=== PATIENT | male | born 1995 | race Caucasian/White ===

== ENCOUNTER 2017-11-13 21:14 | Emergency (ER) | payer OTHER ==
--- NOTE | 2017-11-13 22:20 | ER Document Report ---
ED Medical Screen (RME) - General Chief Complaint: Palpitations Stated Complaint: PALPITATIONS Time Seen by Provider: 11/13/17 22:10 Notes: 21-year-old male, chief complaint of 1 week of intermittent symptoms where he will feel like his heart is racing, he will break out into a sweat, he states he has had muscle spasms, and he states that he has felt tightness in his chest. He states earlier today he broke out into a sweat and he felt like he was having muscle spasms and his heart rate was elevated as well. He states symptoms have largely resolved although he still feels a discomfort across his chest. He chews tobacco, denies smoking, recreational drugs, denies any supplements or daily medications. TRAVEL OUTSIDE OF THE [place] IN LAST 30 DAYS: No - Related Data Allergies/Adverse Reactions: Penicillins Allergy (Verified 11/13/17 21:17) Past Medical History - Social History Chew tobacco use (# tins/day): Yes Frequency of alcohol use: Occasional Drug Abuse: None Renal/ Medical History: Denies: Hx Peritoneal Dialysis Physical Exam - Vital signs Vitals: Temp Pulse Resp BP Pulse Ox 97.9 F 73 18 155/82 H 100 11/13/17 22:07 11/13/17 22:07 11/13/17 22:07 11/13/17 22:07 11/13/17 22:07 - Respiratory Respiratory status: No respiratory distress Breath sounds: Normal, Other - a few coarse breath sounds. No: Decreased air movement - Cardiovascular Rhythm: Regular. No: Tachycardia Heart sounds: Normal auscultation, S1 appreciated, S2 appreciated Course - Vital Signs Vital signs: Temp Pulse Resp BP Pulse Ox 97.9 F 73 18 155/82 H 100 11/13/17 22:07 11/13/17 22:07 11/13/17 22:07 11/13/17 22:07 11/13/17 22:07
--- NOTE | 2017-11-13 22:46 | EKG REPORT ---
SEVERITY:- BORDERLINE ECG - SINUS ARRHYTHMIA, RATE 62-105 BORDERLINE T WAVE ABNORMALITIES : Confirmed by: August Kunz 13-Nov-2017 22:45:29
--- NOTE | 2017-11-13 23:01 | RADIOLOGY REPORT (SQ) ---
EXAM DESCRIPTION: CHEST 2 VIEWS COMPLETED DATE/TIME: 11/13/2017 10:51 pm REASON FOR STUDY: chest pain COMPARISON: None. EXAM PARAMETERS: NUMBER OF VIEWS: two views TECHNIQUE: Digital Frontal and Lateral radiographic views of the chest acquired. RADIATION DOSE: NA LIMITATIONS: none FINDINGS: LUNGS AND PLEURA: No opacities, masses or pneumothorax. No pleural effusion. MEDIASTINUM AND HILAR STRUCTURES: No masses or contour abnormalities. HEART AND VASCULAR STRUCTURES: Heart normal size. No evidence for failure. BONES: No acute findings. HARDWARE: None in the chest. OTHER: No other significant finding. IMPRESSION: NO ACUTE RADIOGRAPHIC FINDING IN THE CHEST. TECHNICAL DOCUMENTATION: JOB ID: [id number] [employer]- All Rights Reserved Reading location - IP/workstation name: [email or web address]
[2017-11-14 00:43] LABS: ANION GAP 11 (5-19); BLOOD UREA NITROGEN 14 mg/dL (7-20); CALCIUM 9.9 mg/dL (8.4-10.2); CARBON DIOXIDE 23 mmol/L (22-30); CHLORIDE 110 mmol/L (98-107); GLUCOSE 109 mg/dL (75-110); POTASSIUM 4.4 mmol/L (3.6-5.0); SODIUM 144.4 mmol/L (137-145)
--- NOTE | 2017-11-14 01:19 | ER Document Report ---
ED General - General Chief Complaint: Palpitations Stated Complaint: PALPITATIONS Time Seen by Provider: 11/13/17 22:10 Notes: Patient is a 21-year-old male with a past medical history current every day chew user and tobacco smoker who presents with palpitations. Patient reports that over the past several days he has had intermittent episodes of palpitations and feelings of his heart fluttering. He also notes that he has had intermittent muscle spasms most notably to the left biceps earlier today. Nothing seems to improve or worsen his symptoms. He does disclose that he uses large amounts of energy drinks and tobacco throughout the day and feels that this may be triggering his symptoms. He denies a history of similar symptoms prior to the past several months. He has not seen a primary care doctor regarding today's concerns. He denies any known cardiac history. At the time of my assessment he denies any symptoms. TRAVEL OUTSIDE OF THE [place] IN LAST 30 DAYS: No - Related Data Allergies/Adverse Reactions: Penicillins Allergy (Verified 11/13/17 21:17) Past Medical History - General Information source: Patient - Social History Smoking Status: Current Some Day Smoker Chew tobacco use (# tins/day): Yes Smoking Education Provided: Yes - Smoking cessation counseling was provided for 4 minutes at the bedside Frequency of alcohol use: Occasional Drug Abuse: None Lives with: Family Family History: Reviewed & Not Pertinent Patient has suicidal ideation: No Patient has homicidal ideation: No Renal/ Medical History: Denies: Hx Peritoneal Dialysis Review of Systems - Review of Systems Notes: Constitutional: Negative for fever. HENT: Negative for sore throat. Eyes: Negative for visual changes. Cardiovascular: Positive for palpitations Respiratory: Negative for shortness of breath. Gastrointestinal: Negative for abdominal pain, vomiting or diarrhea. Genitourinary: Negative for dysuria. Musculoskeletal: Negative for back pain. Skin: Negative for rash. Neurological: Negative for headaches, weakness or numbness. 10 point ROS negative except as marked above and in HPI. Physical Exam - Vital signs Vitals: Temp Pulse Resp BP Pulse Ox 97.9 F 73 18 155/82 H 100 11/13/17 22:07 11/13/17 22:07 11/13/17 22:07 11/13/17 22:07 11/13/17 22:07 Interpretation: Hypertensive Notes: PHYSICAL EXAMINATION: GENERAL: Well-appearing, well-nourished and in no acute distress. HEAD: Atraumatic, normocephalic. EYES: Pupils equal round and reactive to light, extraocular movements intact, sclera anicteric, conjunctiva are normal. ENT: nares patent, oropharynx clear without exudates. Moist mucous membranes. NECK: Normal range of motion, supple without lymphadenopathy LUNGS: Breath sounds clear to auscultation bilaterally and equal. No wheezes rales or rhonchi. HEART: Regular rate and rhythm without murmurs ABDOMEN: Soft, nontender, normoactive bowel sounds. No guarding, no rebound. No masses appreciated. EXTREMITIES: Normal range of motion, no pitting or edema. No cyanosis. NEUROLOGICAL: No focal neurological deficits. Moves all extremities spontaneously and on command. PSYCH: Normal mood, normal affect. SKIN: Warm, Dry, normal turgor, no rashes or lesions noted. Course - Re-evaluation Re-evalutation: 11/14/17 01:16 Patient presents with palpitations but is in no acute distress. Vitals within normal limits at time of arrival. EKG unremarkable with exception of a sinus arrhythmia. Laboratories are unremarkable. Patient denies any chest pain, shortness of breath, or vomiting. At this time based on exam and history do not suspect a malignant arrhythmia, ACS, acute pulmonary embolus, aortic dissection. I discussed with the patient that he does have a sinus arrhythmia likely secondary to his use of stimulants including up to 2 cans of chew daily as well as 2-3 energy drinks daily. Patient encouraged to follow-up with their primary care physician.. At this time will discharge with return precautions and follow-up recommendations. Verbal discharge instructions given a the bedside and opportunity for questions given. Medication warnings reviewed. Patient is in agreement with this plan and has verbalized understanding of return precautions and the need for primary care follow-up in the next 24-72 hours. - Vital Signs Vital signs: Temp Pulse Resp BP Pulse Ox 98.3 F 69 17 137/90 H 98 11/14/17 01:55 11/14/17 01:55 11/14/17 01:55 11/14/17 01:55 11/14/17 01:55 - Laboratory Result Diagrams: 11/14/17 00:13 Laboratory results interpreted by me: 11/14/17 00:13 Chloride 110 H - Diagnostic Test Radiology reviewed: Image reviewed, Reports reviewed Radiology results interpreted by me: 11/14/17 01:19 Chest x-ray: No acute infiltrate or pneumothorax - EKG Interpretation by Me Additional EKG results interpreted by me: 11/14/17 01:19 Sinus arrhythmia, rate varying between 60-105. No ST elevations or depressions. QTC is 390. Discharge - Discharge Clinical Impression: Palpitations, Tobacco abuse Condition: Good Disposition: HOME, SELF-CARE Additional Instructions: Please follow-up with your primary care doctor or a building construction inspector regarding your palpitations. Return if you develop chest pain, shortness of breath, pass out, or have any other symptoms that are worrisome to you. Discontinued tobacco crew as well as energy drinks of these are likely causing your symptoms.
[2017-11-14 01:57] VITALS: BP 137/90
== END 2017-11-14 01:56 | disposition home or self-care (01) ==
LOC: ER 21:14
DX: R00.2 Palpitations (principal); M62.838 Other muscle spasm; F17.200 Nicotine dependence, unspecified, uncomplicated
CPT/HCPCS: 36415; 71046; 80048; 93005; 93010; 99285; 99406